=== PATIENT | female | born 1950 | race Caucasian/White ===

== ENCOUNTER 2016-08-27 20:22 | Emergency (ER) | payer OTHER ==
[2016-08-27] MEDS ORDERED: ATIVAN PO ONE (21:12)
--- NOTE | 2016-08-27 21:12 | PROVIDER DOCUMENTATION ---
HPI-General Adult - General Chief Complaint: Anxiety Stated Complaint: PANIC ATTACK Time Seen by Provider: 08/27/16 21:07 Source: patient Allergies/Adverse Reactions: Patient Allergies Allergy/AdvReac Type Severity Reaction Status Date / Time buprenorphine HCl * Allergy Unknown Verified 06/04/15 20:19 [From Buprenex] egg Allergy Unknown Verified 06/04/15 20:18 Penicillins Allergy Unknown Verified 06/04/15 20:18 Sulfa (Sulfonamide Allergy ITCHING Verified 08/27/16 21:00 Antibiotics) steroid Allergy Unknown Uncoded 08/27/16 21:00 Home Medications: Home Medication List Medication Instructions Recorded Confirmed Last Taken Type Calcium Carb, Citrate/Vit D3 1 each PO 08/27/16 Unknown History [Calcium + D3 ER Tablet] Cyanocobalamin (Vitamin B-12) PO DAILY 08/27/16 Unknown History [Vitamin B-12] Hydrochlorothiazide DAILY 08/27/16 Unknown History Lorazepam [Ativan] 0.5 mg PO BID PRN #5 tablet 08/27/16 Unknown Rx Simvastatin 40 mg PO DAILY 08/27/16 08/27/16 Unknown History - History of Present Illness -Gen Adult Nature of Presenting Problems: 66 y/o WF c/o anxiety x 1 week. Pt states that she has been seen by her PCP for 2 weeks and states that she was given an Abx shot today at his office and feels more anxious now. Denies any CP, SOB, sinus problems, jaw pain, numbness/ tingling. States hx of anxiety and feels like a panic attack. Review of Systems - Adult - REVIEW OF SYSTEMS - ADULT Constitutional: reports: no symptoms reported. denies: chills, fever Eyes: reports: no symptoms reported. denies: blurred vision, double vision Ears, Nose, Mouth & Throat: reports: no symptoms reported. denies: ear pain, nose pain Cardiovascular: reports: no symptoms reported. denies: chest pain, palpitations Respiratory: reports: no symptoms reported. denies: dyspnea on exertion, shortness of breath Gastrointestinal: reports: no symptoms reported. denies: nausea, vomiting Genitourinary: reports: no symptoms reported. denies: dysuria, frequency Musculoskeletal: reports: no symptoms reported. denies: joint pain, joint swelling Integumentary: reports: no symptoms reported. denies: nail changes, rash Neurological: reports: no symptoms reported. denies: numbness, paresthesia Psychiatric: reports: see HPI, anxiety, panic attacks Endocrine: reports: no symptoms reported. denies: cold intolerance, heat intolerance Hematologic/Lymphatic: reports: no symptoms reported. denies: easy bruising, prolonged bleeding Allergic/Immunologic: reports: no symptoms reported All Other Systems: Reviewed and Negative Past History - Adult - PAST MEDICAL HISTORY-ADULT Review of Records: reports: Nursing Assessment Review, Medications Reviewed Major Childhood Illnesses: reports: denies history Cardiovascular: reports: denies history Respiratory: reports: denies history Gastrointestinal: reports: other (hx colon ca ) Genitourinary: reports: denies history Musculoskeletal: reports: denies history Neurological: reports: denies history Psychiatric: reports: anxiety Endocrine/Immune: reports: denies history Other Conditions: reports: denies history - PRIOR SURGERIES/PROCEDURES Surgical/Procedure History: reports: bowel surgery - FAMILY HISTORY Family History: reviewed, not pertinent - SOCIAL HISTORY Smoking: quit greater than 1 year Physical Exam-General - PHYSICAL EXAM-ADULT Initial Vital Signs Reviewed: Yes - CONSTITUTIONAL General Appearance: alert, anxious - EYES Eyes: pink conjunctivae - HEAD, EARS, NOSE, MOUTH & THROAT HENMT: normocephalic/atraumatic, moist mucous membranes - NECK Neck: supple, normal inspection - RESPIRATORY Respiratory: chest non-tender, lungs clear, normal breath sounds. negative: crackles, rales, rhonchi, stridor, wheezing - CARDIOVASCULAR Cardiovascular: regular rate, rhythm. negative: bradycardia, tachycardia - GASTROINTESTINAL (ABDOMEN) Abdominal Exam: normal bowel sounds, non tender, soft - LYMPHATIC Lymphatic: no adenopathy - MUSCULOSKELETAL Back Exam: normal inspection Extremity: normal gait - SKIN Integumentary: normal color, normal turgor, warm/dry - NEUROLOGIC Neurologic: negative: aphasia - PSYCHIATRIC Psych/Mental Status: normal mood/affect, normal thought content, normal thought process, oriented x 3 Progress - PLAN OF CARE/RESULTS Progress/Plan/Lab Results: Orders Category Date Time Status Lorazepam [Ativan] Med 08/27/16 21:12 Discontinued 0.5 mg PO NOW ONE Vital Signs Temp Pulse Resp BP Pulse Ox 08/27/16 21:32 97.8 F 86 18 136/78 100 08/27/16 20:51 98.3 F 91 H 20 137/078 93 L buprenorphine HCl * [From Buprenex] Allergy (Verified 06/04/15 20:19) Unknown egg Allergy (Verified 06/04/15 20:18) Unknown Penicillins Allergy (Verified 06/04/15 20:18) Unknown Sulfa (Sulfonamide Antibiotics) Allergy (Verified 08/27/16 21:00) ITCHING steroid Allergy (Uncoded 08/27/16 21:00) Unknown anxiety Calcium Carb, Citrate/Vit D3 [Calcium + D3 ER Tablet] 1 each PO 08/27/16 Cyanocobalamin (Vitamin B-12) [Vitamin B-12] PO DAILY 08/27/16 Hydrochlorothiazide DAILY 08/27/16 Lorazepam [Ativan] 0.5 mg PO BID PRN #5 tablet 08/27/16 Simvastatin 40 mg PO DAILY 08/27/16 ANXIETY DISORDER, UNSPECIFIED (08/27/16) OTHER WOODS BOSS (CURRENT) DRUG THERAPY (08/27/16) PERSONAL HISTORY OF MALIGNANT NEOPLASM OF LARGE INTESTINE (08/27/16) PERSONAL HISTORY OF NICOTINE DEPENDENCE (08/27/16) Departure - Departure Time of Disposition Order: 21:15 DIAGNOSIS: Anxiety Disposition: HOME 01 Certified Medical Emergency: Emergent Condition: Stable Additional Instructions: Take medications as needed for anxiety. Follow up with your PCP on Tuesday for further management. Return to ED if chest pain, shortness of breath, or anxiety worsens. ED Follow Up Instructions: You have been treated by a care provider in the Emergency Department. These instructions are being provided to you so you can have an understanding of how to care for yourself upon discharge. Upon discharge from the Emergency Department, you are responsible for making arrangements for follow-up care by a physician of your choice. Take all prescribed medications as directed. Return to the Emergency Department immediately for any new or worsening symptoms. You may call the Physician Referral phone number at [phone] to obtain a list of Physicians who are taking new patients. Prescriptions: Lorazepam [Ativan] 0.5 mg PO BID PRN #5 tablet PRN Reason: Anxiety Referrals: Sara Landeros [Registered Nurse] - Instructions: Panic Attacks, [id number], Lorazepam tablets Attestation - Physician/ AIXA Attestation Patient care was provided by Advanced Practice Provider:: Yes Advanced Practice Provider:: Nik,Joselin A. Advanced Practice Provider documentation review:: The Mid-level provider documentation, treatment plan and medical decision making was reviewed by the physician who agrees with all treatment and medical decision making by the MLP.
[2016-08-27 21:38] VITALS: BP 136/78
== END 2016-08-27 21:32 | disposition home or self-care (01) ==
LOC: P.ED 20:22
DX: F41.9 Anxiety disorder, unspecified (principal); Z79.899 Other long term (current) drug therapy; Z85.038 Personal history of other malignant neoplasm of large intestine; Z87.891 Personal history of nicotine dependence
CPT/HCPCS: 99282